=== PATIENT | female | born 1955 | race Caucasian/White ===

== ENCOUNTER 2020-07-17 11:40 | Outpatient (REF) | payer OTHER, SELFPAY | END 2020-07-17 11:41 | disposition home or self-care (01) | LOC: HO.LAB 11:40 | PROVIDERS: PCP Family Medicine; Visit Provider Internal Medicine | DX: Z20.828 Contact with and (suspected) exposure to other viral communicable diseases (principal) | CPT/HCPCS: U0003 ==

== ENCOUNTER 2021-01-08 08:08 | Outpatient (REF) | payer OTHER, SELFPAY ==
--- NOTE | 2021-01-08 08:16 | ECG_ITS ---
Test Reason : PALPITATIONS Blood Pressure : / mmHG Vent. Rate : 063 BPM Atrial Rate : 063 BPM P-R Int : 140 ms QRS Dur : 088 ms QT Int : 414 ms P-R-T Axes : 015 050 033 degrees QTc Int : 423 ms Normal sinus rhythm Low voltage QRS Borderline ECG When compared with ECG of 27-JUL-2009 11:16, No significant change was found Referred By: Candelario Schmitz Electronically Signed By:BLAKE BUTT MD
[2021-01-08 09:52] LABS: Alanine Aminotransferase 14 U/L (0-31); Anion Gap 13 (12-20); Aspartate Amino Transferase 10 U/L (5-31); Blood Urea Nitrogen 13 mg/dL (9-16); Carbon Dioxide 25 mmol/L (22-29); Chloride 109 mmol/L (96-108); Cholesterol 212 mg/dL; Estimated Glomerular Filt Rate > 60; Glucose Fasting 101 mg/dL (60-99); HDL Cholesterol 48 mg/dL; LDL Cholesterol Calculated 127 mg/dl; Potassium 4.7 mmol/L (3.3-5.1); Sodium 142 mmol/L (135-145); Triglycerides 188 mg/dL
== END 2021-01-08 08:09 | disposition home or self-care (01) ==
LOC: HO.LAB 08:08
PROVIDERS: PCP Family Medicine; Visit Provider Family Medicine
DX: I49.9 Cardiac arrhythmia, unspecified (principal); I10 Essential (primary) hypertension; E78.00 Pure hypercholesterolemia, unspecified; R73.9 Hyperglycemia, unspecified; Z79.899 Other long term (current) drug therapy
CPT/HCPCS: 36415; 80051; 80061; 82550; 82565; 82947; 84450; 84460; 84520; 93005

== ENCOUNTER → 2021-01-30 13:05 | Outpatient (REF) | payer OTHER, SELFPAY ==
--- NOTE | 2021-01-30 13:30 | ECG_ITS ---
Hook-up date: 2021-01-30 13:18:00 Duration: 43:44:00 Test Indications: PALPITATIONS Medications: 290950 QRS complexes 2503 Ventricular ectopics which represent 2 % of total QRS comp. 13 Supraventricular ectopics which represent <1 % of total QRS comp. * Paced QRS complexs which represent % of total QRS comp. VENTRICULAR ECTOPY 2395 Isolated 0 Bigeminal Cycles 54 Couplets 0 Runs 0 Beats in Runs * Beats LONGEST at * BPM at :: -- * Beats FASTEST at * BPM at :: -- SUPRAVENTRICULAR ECTOPY 13 Isolated 0 Couplets 0 Runs 0 Beats in Runs * Beats LONGEST at * BPM at :: -- * Beats FASTEST at * BPM at :: -- HEART RATES 55 MIN at 05:13:15 2021-01-31 74 AVG 104 MAX at 13:30:42 2021-01-30 LONGEST RR 1.1280 secs at 09:48:53 2021-01-31 S-T LEVELS Channel 1 - 128 mm at 13:18:00 2021-01-30 - 128 mm at 13:18:00 2021-01-30 Channel 2 - 128 mm at 13:18:00 2021-01-30 - 128 mm at 13:18:00 2021-01-30 Channel 3 - 128 mm at 03:23:71 -- - 128 mm at 03:23:71 Underlying rhythm is sinus; Average rate 74/min; Most rates between 60-100/min; Frequent Premature ventricular complexes - 2% of total beats; mostly isolated beats, some bigeminy, no runs; Patient did not report any symptoms in the diary Referred By: Candelario Schmitz Overread By: ROXANE GOMEZ
== END ==
LOC: HO.CARD 13:05
PROVIDERS: Visit Provider Family Medicine
DX: R00.2 Palpitations (principal)
CPT/HCPCS: 93225; 93226

== ENCOUNTER 2021-03-29 09:30 | Day surgery (SDC) | payer OTHER, SELFPAY ==
[2021-03-25 10:29] VITALS: BMI 29.2
--- NOTE | 2021-03-28 10:06 | HO.ANESPROP2 ---
Documented by User: Laura Malin 03/28/21 10:08 HPI - Anesthesia Eval Consult details Narrative: 66yo F for Colonoscopy PMFSH Past Medical History Medical History Cancer Elevated cholesterol History of chemotherapy History of diverticulitis HTN (hypertension) Hx of radiation therapy Surgical History Surgical History History of lumpectomy of right breast History of total right hip replacement Hx of left breast biopsy Social History Social History Patient Tobacco Use Status: Current everyday Tobacco user Tobacco use type: Cigarette Cigarette Packs Per Day: 1 Cigarettes Per Day: 20.0 Use of substances other than those prescribed or required for medical reasons: No Have you been hit, kicked, punched, or otherwise hurt by someone within the past year? If so, by whom?: No Are you DNR?: No Advance Directives: No Advance Directives Information Provided: Yes Meds Allergies Allergy/AdvReac Type Severity Reaction Status Date / Time latex [Latex] Allergy Unknown SWELLING Unverified 05/31/20 15:38 Home Medications Medication Instructions Recorded Confirmed Last Taken Type atorvastatin 1 tab PO DAILY 03/25/21 03/25/21 Unknown History diltiazem HCl [DILT-XR] 1 cap PO DAILY 03/25/21 03/25/21 Unknown History enalapril maleate 1 tab PO DAILY 03/25/21 03/25/21 Unknown History loratadine [Claritin] 10 mg PO DAILY 03/25/21 03/25/21 Unknown History Exam Exam Date and Time: March 28, 2021 1006 Height,Weight and Vital Signs: Height 5 ft 3 in Weight 74.843 kg Pertinent Lab Results Pertinent Lab Results: Laboratory Tests 09/21/19 01/08/21 12:30 08:27 WBC 10.8 Hgb 13.4 Hct 37.6 Plt Count 313 Sodium 142 Potassium 4.7 Chloride 109 H Carbon Dioxide 25 BUN 13 Creatinine 0.69 Narrative Narrative: EKG 12/2020 Vent. Rate : 063 BPM Atrial Rate : 063 BPM P-R Int : 140 ms QRS Dur : 088 ms QT Int : 414 ms P-R-T Axes : 015 050 033 degrees QTc Int : 423 ms Normal sinus rhythm Low voltage QRS Borderline ECG When compared with ECG of 27-JUL-2009 11:16, No significant change was found Holter 01/2021 Underlying rhythm is sinus; Average rate 74/min; Most rates between 60-100/min; Frequent Premature ventricular complexes - 2% of total beats; mostly isolated beats, some bigeminy, no runs; Patient did not report any symptoms in the diary Assessment and Plan Assessment Anesthesia Assessment: Chart Reviewed Documented by User: Quan Sagastume 03/29/21 09:56 PMFSH Past Medical History Medical History Cancer Elevated cholesterol History of chemotherapy History of diverticulitis HTN (hypertension) Hx of radiation therapy Surgical History Surgical History History of lumpectomy of right breast History of total right hip replacement Hx of left breast biopsy Social History Social History Patient Tobacco Use Status: Current everyday Tobacco user Tobacco use type: Cigarette Cigarette Packs Per Day: 1 Cigarettes Per Day: 20.0 Use of substances other than those prescribed or required for medical reasons: No Have you been hit, kicked, punched, or otherwise hurt by someone within the past year? If so, by whom?: No Are you DNR?: No Advance Directives: No Advance Directives Information Provided: Yes Meds Allergies Allergy/AdvReac Type Severity Reaction Status Date / Time latex [Latex] Allergy Unknown SWELLING Unverified 05/31/20 15:38 Home Medications Medication Instructions Recorded Confirmed Last Taken Type atorvastatin 1 tab PO DAILY 03/25/21 03/25/21 Unknown History diltiazem HCl [DILT-XR] 1 cap PO DAILY 03/25/21 03/25/21 Unknown History enalapril maleate 1 tab PO DAILY 03/25/21 03/25/21 Unknown History loratadine [Claritin] 10 mg PO DAILY 03/25/21 03/25/21 Unknown History Exam Airway Mallampati Class: II TM Dist: >3cm Neck ROM: Full Partial: Upper Heart: rrr+s1s2 Lungs: cta b/l Assessment and Plan Assessment Anesthesia Assessment: Anesthesia Plan Discussed, PAT Visit and Chart Reviewed Final Anesthetic Review NPO: Yes ASA Class: III Final Preanesthetic Review: No Changes in Pt Med Stat, Meds/Allgs Chart Reviewed, Consent Obtained/Reviewed and Anes Risks/Benef Reviewed Patient Risk: Intermediate Procedure Risk: Low Assessment/Block/Sedation in SS: Assess/Block/Sedation-SS Anesthetic Plan Anesthetic Plan: MAC: and Agree w/ Assess. and Plan Disposition: Standard PACU
[2021-03-29 09:43] VITALS: BP 156/70; PULSE 87; RESP 18; TEMP 36; O2SAT 96
[2021-03-29] MEDS: Sodium Phosphate,Mono-Dibasic 133 ML ENEMA PR (10:03)
[2021-03-29] MEDS: Lactated Ringers 1,000 ML 100 ML IVCONT (10:18)
[2021-03-29 11:49] VITALS: BP 131/66; PULSE 69; RESP 16; TEMP 36.2; O2SAT 96
--- NOTE | 2021-03-29 11:50 | PM.OP ---
Brief Operative Note Date of Service: 03/29/21 Pre-op diagnosis: Screening Post-op diagnosis: other (Diverticulosis) Procedure: Colonoscopy to the cecum and TI Surgeon: Román Pascual Anesthesia: MAC Was an Day Habilitation Specialist used for this Procedure?: No Estimated blood loss (mL): 0 Pathology: none sent Condition: stable Disposition: PACU
[2021-03-29 12:05] VITALS: PULSE 69; RESP 16; TEMP 36.2; O2SAT 97
--- NOTE | 2021-03-29 12:07 | OP_ITS ---
SURGEON: Román Pascual MD INDICATIONS: The patient presents for evaluation of colorectal cancer screening. Full consent has been obtained from her for this, including risks of bleeding and perforation. PREOPERATIVE DIAGNOSIS: Colorectal cancer screening. POSTOPERATIVE DIAGNOSIS: PROCEDURE PERFORMED: Colonoscopy to cecum and terminal ileum. ESTIMATED BLOOD LOSS: COMPLICATIONS: ANESTHESIA: Monitored anesthesia care. ASSISTANTS: SPECIMENS: POSTOPERATIVE DIAGNOSES: Colorectal cancer screening, sigmoid diverticulosis, and internal hemorrhoids. DESCRIPTION OF PROCEDURE: The patient was placed in the left lateral decubitus position. The digital rectal exam revealed some small external hemorrhoids. The Olympus video pediatric colonoscope was entered into the rectum and advanced easily to the cecum. Once in the cecum, I did identify normal-appearing cecal pouch with appendiceal orifice and a normal-appearing ileocecal valve. The terminal ileum was cannulated and appeared normal. The scope was withdrawn back in the colon. The entire cecum and ileocecal valve appeared normal. The scope was slowly withdrawn assessing all mucosal surfaces carefully. Preparation was excellent. I did not visualize any sign of polyps, colitis, nor angiodysplasia. There was a moderate amount of sigmoid diverticulosis. In the rectum, scope was retroflexed visualizing internal hemorrhoids, but no other pathology. The rectal mucosa appeared normal. The scope was straightened out and withdrawn from the patient. She tolerated the procedure well and was returned to the recovery area in stable condition. IMPRESSION: 1. Diverticulosis. 2. Internal hemorrhoids. PLAN: Given today's negative exam and negative family history, I would recommend a followup colonoscopy in 10 years for further screening. She will otherwise see me on a p.r.n. basis. MD TOMMY Townsend/FAISALL / [phone]
== END 2021-03-29 12:35 | disposition home or self-care (01) ==
PROVIDERS: PCP Family Medicine; Visit Provider Internal Medicine
PROC: 0DJD8ZZ Inspection of Lower Intestinal Tract, Via Natural or Artificial Opening Endoscopic (ICD-10-PCS; CPT 45378; principal; 2021-03-29 10:40)
DX: Z12.11 Encounter for screening for malignant neoplasm of colon (principal); K57.30 Diverticulosis of large intestine without perforation or abscess without bleeding; K64.8 Other hemorrhoids; I10 Essential (primary) hypertension; Z85.3 Personal history of malignant neoplasm of breast; Z92.21 Personal history of antineoplastic chemotherapy; Z92.3 Personal history of irradiation; Z79.899 Other long term (current) drug therapy; Z91.040 Latex allergy status; F17.210 Nicotine dependence, cigarettes, uncomplicated
CPT/HCPCS: 45378

== ENCOUNTER 2021-07-18 13:43 | Outpatient (REF) | payer OTHER, SELFPAY ==
--- NOTE | ~2021-07-18 | MM_ITS ---
EXAMINATION: MM SCREENING DIGITAL BREAST TOMOSYNTHESIS, BILATERAL CLINICAL INFORMATION: Screening. Asymptomatic. Status post right lumpectomy. Status post excisional biopsy left breast. COMPARISON: Mammography: June 12, 2020 and studies dating back to May 03, 2014 TECHNIQUE: Digital breast tomosynthesis is performed in both the craniocaudal and mediolateral oblique views along with computer-aided detection (CAD). Synthesized 2D images are generated from the tomosynthesis. FINDINGS: The breasts are heterogeneously dense, which may obscure small masses (ACR BI-RADS breast composition Category c). There are no new significant masses, abnormal calcifications, or other abnormalities. Postsurgical changes are seen bilaterally which are stable. MM/MM tomosynthesis screening BI IMPRESSION: There are no significant changes from prior study. ASSESSMENT: BI-RADS 2: Benign RECOMMENDATION: Routine annual mammography screening. This patient's information was entered into a reminder system with a target due date for their next mammogram.
== END 2021-07-18 13:44 | disposition home or self-care (01) ==
LOC: HO.MAMMO 13:43
PROVIDERS: PCP Family Medicine; Visit Provider Nurse Practitioner
DX: Z12.31 Encounter for screening mammogram for malignant neoplasm of breast (principal)
CPT/HCPCS: 77063; 77067

== ENCOUNTER 2022-04-03 12:05 | Outpatient (REF) | payer MEDICARE, OTHER, SELFPAY ==
[2022-04-03 13:48] LABS: Alanine Aminotransferase 13 U/L (0-31); Anion Gap 13 (12-20); Aspartate Amino Transferase 13 U/L (5-31); Blood Urea Nitrogen 12 mg/dL (9-16); Carbon Dioxide 20 mmol/L (22-29); Chloride 111 mmol/L (96-108); Estimated Glomerular Filt Rate > 60; Potassium 4.8 mmol/L (3.3-5.1); Sodium 139 mmol/L (135-145)
== END 2022-04-03 12:06 | disposition home or self-care (01) ==
LOC: HO.10HDL 12:05
PROVIDERS: Visit Provider Family Medicine
DX: I10 Essential (primary) hypertension (principal); E78.00 Pure hypercholesterolemia, unspecified; Z79.899 Other long term (current) drug therapy
CPT/HCPCS: 36415; 80051; 82550; 82565; 84450; 84460; 84520

== ENCOUNTER 2022-08-22 08:22 | Outpatient (REF) | payer MEDICARE, OTHER, SELFPAY ==
--- NOTE | ~2022-08-22 | MM_ITS ---
EXAMINATION: MM SCREENING DIGITAL BREAST TOMOSYNTHESIS, BILATERAL CLINICAL INFORMATION: Screening. Asymptomatic. Right breast cancer status post lumpectomy, 2008. Benign left excisional biopsy, 1995. COMPARISON: Mammography: 07/18/2021, 06/12/2020, 05/23/2019 TECHNIQUE: Digital breast tomosynthesis is performed in both the craniocaudal and mediolateral oblique views along with computer-aided detection (CAD). Synthesized 2D images are generated from the tomosynthesis. FINDINGS: The breasts are heterogeneously dense, which may obscure small masses (ACR BI-RADS breast composition Category c). There is fine fibronodular parenchymal pattern similar to prior studies. Breast tissue composition borders on average fibroglandular. There is no developing density or interval mass or architectural abnormality or abnormal calcifications. There are post lumpectomy changes again seen right breast with old scarring posterior upper outer quadrant along with some benign dystrophic calcification. There is a biopsy clip marker mid lower inner right breast. The axilla are unremarkable. There are no significant changes. MM/MM tomosynthesis screening BI IMPRESSION: No mammographic evidence of malignancy. ASSESSMENT: BI-RADS 2: Benign RECOMMENDATION: Routine annual mammography screening. This patient's information was entered into a reminder system with a target due date for their next mammogram.
== END 2022-08-22 08:23 | disposition home or self-care (01) ==
LOC: HO.MAMMO 08:22
PROVIDERS: Visit Provider Family Medicine
DX: Z12.31 Encounter for screening mammogram for malignant neoplasm of breast (principal)
CPT/HCPCS: 77063; 77067

== ENCOUNTER → 2022-10-22 09:03 | Outpatient (REF) | payer MEDICARE, OTHER, SELFPAY ==
--- NOTE | 2022-10-22 09:06 | CA_ITS ---
Transthoracic Echocardiogram Patient (Last, First, Middle): Mitzi Kimble M Gender: Female Date of : 1955 Age: 67 Procedure Date: 10/22/2022 Procedure Type: Transthoracic Echocardiogram Location: OP Height: 157.48 cm Weight: 72.58 kg BSA: 1.74 m2 Heart Rate: 73 bpm BP: 130 / 80 mmHg [employer] Nurse: AVEL Referring MD: Candelario Schmitz MD Dry Room Attendant: Aden Montiel MD Symptoms: R01.1 CA MURMUR RT STERNAL BORDER R/O AND TR Study Quality: Adequate ECG Rhythm: Sinus Conclusions: - 1. Normal LV systolic function with impaired relaxation filling pattern 2. Normal cardiac valvular Doppler 3. Normal RV systolic pressure 4. No gross pericardial effusion Findings Left Ventricle Normal left ventricular size, thickness, and systolic function. The visually estimated ejection fraction is between 60-65%. Spectral Doppler is indicative of an impaired relaxation filling pattern. E/E prime ratio is <8, consistent with normal filling pressures. Right Ventricle Normal right ventricular cavity size and systolic function. Atria The left atrium is likely dilated. There is no evidence of interatrial shunt. The right atrium is normal in size. Aortic Valve The aortic valve structure and function is likely normal. There is no aortic valve stenosis. There is no aortic valve regurgitation. Mitral Valve Normal mitral valve structure and function. There is trace mitral valve regurgitation. There is no mitral valve stenosis. Pulmonic Valve The pulmonic valve is likely normal. Tricuspid Valve Normal tricuspid valve structure. There is trace tricuspid valve regurgitation. The right ventricular systolic pressure is normal. The right ventricular systolic pressure is 27 mmHg. Normal right atrial pressure. There is no evidence of pulmonary hypertension. Great Vessels All visible segments of the aorta are normal in size. The pulmonary artery was not well visualized. Venous The inferior vena cava is normal in size and collapses greater than 50% with inspiration. Pericardium/Pleural There is no evidence of pericardial effusion. Prior Study Comparison No prior study available for comparison. Measurements 2D Linear Measurements IVSd: 1.06 0.6-0.9/0.6-1.0 cm LVIDd: 4.11 3.9-5.3/4.2-5.9 cm LVIDd Index: 2.36 2.4-3.2/2.2-3.1 cm/m2 LVIDs: 2.43 2.0-3.6 cm LVPWd: 0.93 0.7-1.1 cm LA Diam: 3.80 2.7-3.8/3.0-4.0 cm LAIDs Index: 2.18 1.5-2.3 cm/m2 LV Mass: 163.62 67-162/88-224 g LV Mass Index: 94.04 43-95/49-115 g/m2 LVOT Diam: 1.80 3.0+(-)1.3 cm 2D Systolic Function EF 4C: 65.10 >55% EF 2C: 62.10 >55% EF BiP: 63.10 >55% Mitral Valve MV Pk E: 0.88 MV PK A: 0.91 MV Decel Time: 224.00 E/A: 1.00 E'Lateral: 8.16 E'Medial: 8.16 E/E' Med: 10.70 E/E' Lat: 10.70 PHT: 66.00 MVA PHT: 3.33 Decel Teller: 3.91 Aortic Valve AoV Pk Ken: 1.48 AoV Mn Ken: 1.07 AoV VTI: 0.32 AoV Pk Grad: 9.00 Aov Mn Grad: 5.00 MULU Cont.VTI: 2.26 LVOT LVOT Pk Ken: 1.29 LVOT Mn Ken: 0.97 LVOT VTI: 0.29 LVOT Pk Grad: 7.00 LVOT Mn Grad: 4.00 LVOT Diam: 1.80 LVOT Area: 2.54 Diastolic Function MV Pk E: 0.88 MV Pk A: 0.91 E/A: 1.00 E'Medial: 8.16 E/E' Med: 10.70 E' Laterial: 8.16 E/E' Lat: 10.70 Right Ventricle TAPSE (mm): 22.00 TVS' Ken: 13.90 Tricuspid Valve TR Pk Ken: 2.46 TR Pk Grad: 24.00 RA Press: 3.00 RVSP: 27.00 Great Vessels Aorta Sinus of Valsalva: 3.30 2.0-3.5 cm Ao Asc: 3.30 2.1-3.4 cm Pulmonary Valve PV Pk Ken: 1.06 Peak PV Grad: 4.00 Updated in Other Vendor System with Status of Final Aden Montiel MD electronically signed on 10/23/2022 5:05:15 PM with status of Final
== END ==
LOC: HO.CARD 09:03
PROVIDERS: PCP Family Medicine; Visit Provider Family Medicine
DX: R01.1 Cardiac murmur, unspecified (principal)
CPT/HCPCS: 93306

== ENCOUNTER 2022-12-19 07:09 | Outpatient (REF) | payer MEDICARE, OTHER, SELFPAY ==
--- NOTE | ~2022-12-19 | XR_ITS ---
EXAMINATION: XR CHEST CLINICAL INFORMATION: Cough, tobacco dependence. COMPARISON: Chest radiographs 08/10/2017, 11/02/2012. TECHNIQUE: 2 views of the chest were obtained. FINDINGS: There is some borderline coarsening central bronchiolar markings. No bronchiectasis. No airspace consolidation or groundglass opacity. No effusion. Cardiopericardial silhouette within normal. The hilar and mediastinal contours are unremarkable. No acute bony abnormality. XR/XR chest 2V IMPRESSION: Mild coarsening bronchiolar markings. No bronchiectasis. No airspace consolidation or groundglass opacity.
[2022-12-19 09:32] LABS: Alanine Aminotransferase 16 U/L (0-31); Anion Gap 15 (12-20); Aspartate Amino Transferase 12 U/L (5-31); Blood Urea Nitrogen 10 mg/dL (9-16); Carbon Dioxide 23 mmol/L (22-29); Chloride 105 mmol/L (96-108); Estimated Glomerular Filt Rate > 60; Potassium 4.9 mmol/L (3.3-5.1); Sodium 138 mmol/L (135-145)
[2022-12-19 09:52] LABS: Thyroid Stimulating Hormone 0.89 uIU/mL (0.32-4.0)
== END 2022-12-19 07:10 | disposition home or self-care (01) ==
LOC: HO.LAB 07:09
PROVIDERS: PCP Family Medicine; Visit Provider Family Medicine
DX: I10 Essential (primary) hypertension (principal); E78.00 Pure hypercholesterolemia, unspecified; F17.200 Nicotine dependence, unspecified, uncomplicated; R05.9 Cough, unspecified; Z79.899 Other long term (current) drug therapy
CPT/HCPCS: 36415; 71046; 80051; 82550; 82565; 84443; 84450; 84460; 84520

== ENCOUNTER 2024-05-17 07:31 | Outpatient (REF) | payer MEDICARE, OTHER, SELFPAY ==
[2024-05-17 08:23] LABS: Estimated Average Glucose 123 mg/dL; Hemoglobin A1c % 5.9 % (<6.0)
[2024-05-17 09:04] LABS: Alanine Aminotransferase 16 U/L (0-31); Anion Gap 11 (12-20); Aspartate Amino Transferase 14 U/L (5-31); Blood Urea Nitrogen 10 mg/dL (9-16); Carbon Dioxide 23 mmol/L (22-29); Chloride 109 mmol/L (96-108); Cholesterol 222 mg/dL (<200); Estimated Glomerular Filt Rate > 60; Glucose Fasting 97 mg/dL (60-99); HDL Cholesterol 39 mg/dL (>40); LDL Cholesterol Calculated 128 mg/dL (<100); Potassium 4.3 mmol/L (3.3-5.1); Sodium 139 mmol/L (135-145); Triglycerides 277 mg/dL (<150)
== END 2024-05-17 07:32 | disposition home or self-care (01) ==
LOC: HO.LAB 07:31
PROVIDERS: PCP Family Medicine; Visit Provider Family Medicine
DX: I10 Essential (primary) hypertension (principal); E78.00 Pure hypercholesterolemia, unspecified; Z79.899 Other long term (current) drug therapy; R73.9 Hyperglycemia, unspecified
CPT/HCPCS: 36415; 80051; 80061; 82550; 82565; 82947; 83036; 84450; 84460; 84520

== ENCOUNTER 2024-09-09 10:19 | Outpatient (REF) | payer MEDICARE, OTHER, SELFPAY ==
--- OUTSIDE RECORDS SUMMARY | 2024-09-09 10:21 | XMS_ITS | Patient Health Record ---
Author Organization [facility] Address [address] [place] [address] Care Team Providers Care Sizer Machine Name Role Phone Nadir SORIANO, Candelario Primary Care Provider Unavailab Román Leblanc Unavailable [phone] REASON FOR REFERRAL No Information MEDICATIONS Medication SIG (Take, Route, Frequency, Duration) Notes Start Date End Date Status Atorvastatin Calcium 40 MG TAKE 1 TABLET BY MOUTH EVERY NIGHT AT BEDTIME DIRECTED Oral for 30 Active Claritin 10 MG 1 tablet Orally Once a day for 30 day(s) Active Dilt-XR 120 MG TAKE ONE CAPSULE BY MOUTH DAILY Oral for 30 Active Enalapril Maleate 20 MG TAKE 1 TABLET BY MOUTH EVERY DAY Oral for 30 Active IMMUNIZATIONS Vaccine Route Administration Date Status Comme nts Influenza Unknown 02/19/2021 Refused SOCIAL HISTORY Tobacco Use: Social History Observation Description Date Details (start date - stop date) Current Smoker NA - NA Sex Assigned At : Social History Observation Description Sex Assigned At Unknown Tobacco Use/Smoking Question Answer Notes Patient is a current smoker How often do you smoke cigarettes? every day How many cigarettes a day do you smoke? 11-20 Alcohol Screen Question Answer Notes Did you have a drink contain ing alcohol in the past year? Yes How often did you have a dri nk containing alcohol in the past year? 2 to 4 times a month (2 points) How many drinks did you have on a typical day when you were drinking in the past year? 3 or 4 drinks (1 point) Points 3 Interpretation Positive PROBLEMS Problem Type ICD Code Onset Dates Problem Status W/U Status Risk SNOMED Code Notes Problem Encounter for screening for malignant neoplasm of colon (Z12.11) Active confirmed 294485715 Problem Preprocedural examination (Z01.818) Active confirmed [id number] Problem Diverticular disease of colon (K57.30) Active confirmed Diverticular disease of colon (392337738) PLAN OF TREATMENT Future Test Test Name Order Date COLONOSCOPY 02/19/2021 Insurance Providers Payer Name Payer Address Payer Phone Subscriber Number Group Number Insured Name Patient Relationship to Insured Coverage Start Date Coverage End Date [facility] [address] [place] [address] [id number] BRIELLE POWELL Self - patient is the insured MEDICAL (GENERAL) HISTORY Medical History History ICD Code Hypertension Right breast cancer-2008--surgery as bel ow, chemo, and XRT Denies [place],DM,CVA,Lung disease,renal dise ase Seasonal allergies Left-sided diverticulitis in 04/2019 and 09/2019 Hyperlipidemia Surgical History Surgery Date(Month/Year) Lumpectomy as above 07/2009 Right hip replacement 03/2014 Benign left breast biopsy
[2024-09-09 10:57] LABS: MANUAL DIFF FLAG NO
[2024-09-09 11:02] LABS: Basophils Absolute Auto 0.1 X10*3/uL (0.0-0.2); Eosinophils Absolute Auto 0.1 X10*3/uL (0.0-0.4); Eosinophils Percent Auto 1.6 % (0-4); Hematocrit 36.2 % (37.0-47.0); Hemoglobin 12.2 g/dl (12.0-16.0); Imm Gran Abs Auto 0.01 X10*3/uL (0.00-0.03); Imm Gran Pct Auto 0.1 % (0.0-0.4); Lymphocytes Absolute Auto 3.1 X10*3/uL (1.2-4.9); Lymphocytes Percent Auto 44.1 % (20-40); Mean Corpuscular HGB Conc 33.7 g/dl (31.0-35.0); Mean Corpuscular Hemoglobin 33.1 pg (27.0-33.0); Mean Corpuscular Volume 98.1 fL (80.0-98.0); Mean Platelet Volume 9.8 fL (9.4-12.3); Monocytes Absolute Auto 0.6 X10*3/uL (0.1-1.2); Monocytes Percent Auto 8.2 % (2-11); Neutrophils Absolute Auto 3.1 x10*3/uL (2.0-8.3); Platelet Count 385 X10*3/uL (160-400); Red Blood Count 3.69 X10*6/uL (4.20-5.50); Red Cell Distribution Width 14.1 % (11.0-16.0); White Blood Count 6.9 X10*3/uL (4.8-10.8)
[2024-09-09 11:14] LABS: C Reactive Protein 0.44 mg/dL (< or = 0.50)
[2024-09-09 11:52] LABS: Erythrocyte Sedimentation Rate 59 MM/HR (0-20)
== END 2024-09-09 10:20 | disposition home or self-care (01) ==
LOC: HO.10HDL 10:19
PROVIDERS: Visit Provider Family Medicine
DX: K57.92 Diverticulitis of intestine, part unspecified, without perforation or abscess without bleeding (principal)
CPT/HCPCS: 36415; 85025; 85652; 86140

== ENCOUNTER 2025-05-24 09:51 | Outpatient (AMB) | payer MEDICARE, OTHER, SELFPAY ==
--- NOTE | 2025-05-24 09:50 | A.OFFPC_ITS ---
Vital Signs 05/24/25 09:55 Height 5 ft 1 in Weight 162 lb BMI 30.6 BP 130/64 Blood Pressure Location Lt brachial Position Sitting Respiration 18 Pulse 82 Pulse Source Pulse Oximeter Temp 98.2 F Temp Source Temporal Artery Scan Pulse Oximetry (%) 95 Intake Visit Reasons: 3 MO F/UP - [facility] - WILL WANT DR. NELSON Woodworking Machine Feeder Required: No Accompanied by: Self / Same As Patient Allergies latex (Latex) Allergy (Unknown, Verified 05/24/25 09:51) SWELLING Medication List - Last Reconciled 05/24/25 by Thomas Nelson MD atorvastatin 1 tab PO DAILY ciprofloxacin HCl 250 mg PO BID 7 days diltiazem HCl ER (DILT-XR) 1 cap PO DAILY enalapril maleate 1 tab PO DAILY loratadine (Claritin) 10 mg PO DAILY multivitamin 1 tab PO DAILY Tobacco use date assessed: 05/24/25 Fall risk assessment: No Falls in past year Last assessed Fall Risk: 05/24/25 Dental Screening Did you have a dental visit in the last 12 months?: Yes HPI HPI Comments History of Present Illness Details The patient is a 70-year-old female presenting with episodes of diverticulitis occurring two to three times annually. Last week, she experienced a severe flare-up characterized by abdominal pain primarily localized to the lower left quadrant, which later extended across the entire lower abdomen. The pain intensity was rated as 10/10. The episode began on a Thursday, and antibiotics (Ciprofloxacin) were initiated on ; however, she reports that this medication was ineffective compared to her usual antibiotic, Amoxicillin. Her symptoms were somewhat relieved by ceasing food intake and consuming only liquids. Despite this, she did not experience diarrhea or richard tochezia; instead, she reports constipation despite typically having regular bowel movements a couple of times daily. Past imaging, including ultrasonography and CT scans, have shown normal results, according to the patient. Despite having a family history of diverticulosis, there is no current imaging evidence of an active diverticulitis episode within this visit. Medical History: - Hypertension, managed with lisinopril and diltiazem - Hyperlipidemia, managed with atorvasta tin - History of cold sores, treated with [facility] lacyclovir - History of Breast Cancer, diagnosed in [id number] Surgical History: - Two total hip replacements - Breast cancer surgery Medications: - Lisinopril for hypertension - Diltiazem for hypertension - Atorvastatin for hyperlipidemia Family History: - Coronary artery disease in both parent s, both had bypass surgeries - Diabetes present on both paternal and maternal sides - Breast cancer in family history - Sinus cancer in maternal lineage Diagnostic Results: - High triglyceride and cholesterol cucae ls from last year's blood work - Previous normal colonoscopy and imagin g studies showing diverticulosis but no diverticulitis Social History: - Smokes about 10-12 cigarettes per day for the past 40 years - Consumes 1-2 alcoholic drinks per week - Lives with a boyfriend in a safe and s table environment - Reports safe living conditions [facility] Medical History (Updated 05/24/25 @ 10:23 by Thomas Nelson MD) Diverticulitis Tobacco use disorder History of diverticulitis Elevated cholesterol Hx of radiation therapy History of chemotherapy Cancer HTN (hypertension) Surgical History Hx of left breast biopsy History of total right hip replacement History of lumpectomy of right breast Social History [facility] Patient Tobacco Use Status: Current everyday Tobacco user Tobacco use type: Cigarette Cigarette Packs Per Day: 1 Cigarettes Per Day: 20.0 e-Cigarette/Vaping Use: Never Used service: No Current occupational status: retired Questionnaire PHQ-9 Over the last 2 weeks, how often have you been bothered by any of the following problems? 1. Little interest or pleasure in doing things: not at all 2. Feeling down, depressed, or hopeless: not at all 3. Trouble falling or staying asleep, or sleeping too much: not at all 4. Feeling tired or having little energy: not at all 5. Poor appetite or overeating: not at all 6. Feeling bad about yourself - or that you are a failure or have let yourself or your family down: not at all 7. Trouble concentrating on things, such as reading the newspaper or watching television: not at all 8. Moving or speaking so slowly that other people could have noticed. Or the opposite - being so fidgety or restless that you have been moving around a lot more than usual: not at all 9. Thoughts that you would be better off or of hurting yourself in some way: not at all Total score: 0 Depression Screening Interpretation: Negative Depression Screening Done: Yes 32707 - PHQ-9 Billing: Yes Source: Developed by Drs. Román Galvan, Alisha Fernández, Rhys Lozoya and colleagues, with an educational maryjane from [employer]. Thrive Questionnaire Date Thrive assessed: 05/24/25 I am a: Patient What is your living situation today?: I have a steady place to live Within the past 12 months, did the food you bought not last and you didn't have the money to get more?: Never true Within the past 12 months, did you worry whether your food would run out before you got money to buy more?: Never true Do you have trouble paying for medicines?: No Do you have trouble getting transportation to medical appointments?: No Do you have trouble paying your heating and electricity bill?: No Do you have trouble taking care of your child, family member or friend?: No Do you have trouble with day-to-day activities such as bathing, preparing meals, shopping, managing finances, etc.?: No Are you currently unemployed and looking for a job?: No Are you interested in more education?: No THRIVE Score: 0 AUDIT C Alcohol Use Questionnaire (AUDIT-C) 1. How often do you have a drink containing alcohol?: 2-4 times a month 2. How many drinks containing alcohol do you have on a typical day when you are drinking?: 1 or 2 3. How often do you have six or more drinks on one occasion?: Never Total Score: 2 Score Reviewed/Action Taken: Yes BRYAN-7 AMB Questionnaire BRYAN-7 Date BRYAN - 7 assessed: 05/24/25 Feeling nervous, anxious, or on edge: 0 = Not at all Not being able to stop or control worryin = Not at all Worrying too much about different things: 0 = Not at all Trouble relaxin = Not at all Being so restless that it is hard to sit still: 0 = Not at all Becoming easily annoyed or irritable: 0 = Not at all Feeling afraid as if something awful might happen: 0 = Not at all Total BRYAN-7 score (0-4 normal; 5-9 mild; 10-14 moderate; 15-21 severe): 0 Source: Developed by Drs. Román Galvan, Alisha Fernández, Rhys Lozoya and colleagues, with an educational maryjane from [employer]. BRYAN-7 Assessment Billing BRYAN-7 Assessment Tool: BRYAN-7 Assessment 32586 Review of Systems Const Details: - Gastrointestinal: Reports severe abdominal pain during flare-ups; Denies diarrhea and blood in stools - Genitourinary: Denies dysuria or incontinence - Neurological: Reports occasional headaches in the eyes - Psychiatric: Denies depression, anxiety, or self-harming thoughts All systems reviewed & are unremarkable as reviewed in HPI and except as above Physical exam (Primary Care) Vital Signs: Last Vital Signs Temp 98.2 F 05/24/25 09:55 Pulse 82 05/24/25 09:55 Resp 18 05/24/25 09:55 BP 130/64 05/24/25 09:55 Pulse Ox 95 05/24/25 09:55 BMI result Body Mass Index 30.6 Tobacco/Smoking Status: Tobacco use Status Tobacco use date assessed 05/24/25 05/24/25 09:58 Patient Tobacco Use Status Current everyday Tobacco 05/24/25 09:58 Tobacco use type Cigarette 05/24/25 09:58 e-Cigarette/Vaping Use Never Used 05/24/25 09:58 Discussed the ill effects of tobacco use in the setting of malignancies, high blood pressure and in combination with her hypercholesterolemia can worsen her underlying medical conditions. Are you ready to quit: No Tobacco cessation counseling provided: Yes Relapse Prevention: discussed the importance of a supportive environment Number of minutes spent counselin CPT code: 89305 - 4-10 Minutes Depression Screening Interpretation: Negative Const Other: General: Alert and oriented, Well nourished, No acute distress. Eye: Pupils are equal, round and reactive to light, Intact accommodation, Extraocular movements are intact, Normal conjunctiva, Vision unchanged. HENT: Normocephalic, Atraumatic, Tympanic membranes are clear, Normal hearing, Oral mucosa is moist, No pharyngeal erythema, Ear canals patent. Respiratory: Lungs CTA bilaterally, No wheeze, Respirations are non-labored. Cardiovascular: Regular rate, Regular rhythm, S1 auscultated, S2 auscultated, No murmur, Good pulses equal in all extremities, Normal peripheral perfusion, No edema. Gastrointestinal: Soft, Tender in the lower abdomen, Non-distended, Normal bowel sounds, No organomegaly. Musculoskeletal: Normal range of motion, Normal strength, No tenderness, No swelling, No deformity, Normal gait. Integumentary: Warm, Dry, Leyner, Intact, Presence of varicose veins. Neurologic: Alert, Oriented, Normal sensory, Normal motor function, No focal defects, Cranial Nerves II-XII are grossly intact, Normal deep tendon reflexes. Psychiatric: Cooperative, Appropriate mood & affect, Normal judgment. Coding Level of Care Code New Pt Level 4 (77086) New Pt Prev Care >65yr (54691) Diagnoses Hypertension, unspecified type I10 Hypertension type: unspecified Elevated cholesterol E78.00 Tobacco use disorder F17.200 Diverticulitis K57.92 Additional Codes PHQ-9 - 15699 - PHQ-9 Billing: Yes ([id number]) BRYAN-7 Assessment Billing - BRYAN-7 Assessment Tool: BRYAN-7 Assessment 12542 ([id number]) Vital Signs *Quality* - CPT code: 99937 - 4-10 Minutes ([id number]) Assessment & Plan Assessment & Plan (1) HTN (hypertension): Comment: - Continue with current antihypertensive medications: lisinopril and diltiazem. - Blood pressure was well-controlled during this visit. Code(s): I10 - Essential (primary) hypertension Category: Medical Qualifiers: Hypertension type: unspecified Qualified Code(s): I10 - Essential (primary) hypertension (2) Elevated cholesterol: Comment: - Continue atorvastatin and discuss lifestyle modifications for cholesterol control. - Will repeat panel and change medications based on results Code(s): E78.00 - Pure hypercholesterolemia, unspecified Category: Medical (3) Tobacco use disorder: Comment: - Strongly advised to reduce smoking due to associated health risks. - Lung cancer screening has been ordered due to smoking history. Code(s): F17.200 - Nicotine dependence, unspecified, uncomplicated Category: Medical (4) Diverticulitis: Comment: - Recommend evaluation by a general surgeon due to recurrent episodes more than twice a year. - Advised to seek immediate medical attention during future acute episodes to obtain essential imaging given she has received multiple courses of antibiotics without any imaging or findings of infections. Code(s): K57.92 - Diverticulitis of intestine, part unspecified, without perforation or abscess without bleeding Category: Medical Plan: Health Maintenance - Lung cancer screening via low-dose CT due to a long smoking history - Routine mammogram conducted this year - Blood work to assess sugar levels, thyroid function, and cholesterol is planned Plan I discussed with the patient the necessity of confirming a diagnosis of diverticulitis with imaging during an acute episode to appropriately guide treatment. It was explained that recurrent diverticulitis should be evaluated by a general surgeon, especially considering the frequency of occurrences. I emphasized that without suitable imaging or documentation, we could not establish a confirmed diagnosis of diverticulitis to justify the recurring antibiotic treatments. In terms of health maintenance, I have ordered a lung cancer screening and will continue managing hypertension and hyperlipidemia with her current medications, while encouraging lifestyle modifications to improve her overall prognosis. She is advised to reduce smoking due to its considerable impact on cardiovascular health and cancer risk. I confirmed that her blood pressure readings are stable, and the strategies for her lipid management remain effective. Orders: Orders Comprehensive Met. Panel Today E78.00 - Pure hypercholesterolemia, unspecified, I10 - Essential (primary) hypertension Complete Blood Count Auto Diff Today E78.00 - Pure hypercholesterolemia, unspecified, I10 - Essential (primary) hypertension Hemoglobin A1c Today E78.00 - Pure hypercholesterolemia, unspecified, I10 - Essential (primary) hypertension Lipid Panel Today E78.00 - Pure hypercholesterolemia, unspecified, I10 - Essential (primary) hypertension TSH reflex Free T4 Today E78.00 - Pure hypercholesterolemia, unspecified, I10 - Essential (primary) hypertension Vitamin D 25-OH Total Today E78.00 - Pure hypercholesterolemia, unspecified, I10 - Essential (primary) hypertension Referrals Lung Cancer Screening Referral F17.200 - Nicotine dependence, unspecified, uncomplicated Patient Instructions: - Seek immediate medical help during any future severe abdominal pain episodes to obtain necessary imaging. - Continue taking hypertension and lipid-lowering medications as prescribed. - Reduce cigarette smoking to lower the risk of heart disease and cancer. - Attend the scheduled lung cancer screening and follow up for results. - Maintain regular mammogram screenings and health check-ups. - Perform routine blood work as planned for monitoring cholesterol and thyroid function.
[2025-05-24 09:55] VITALS: BP 130/64; PULSE 82; RESP 18; TEMP 36.8; O2SAT 95; BMI 30.6
--- OUTSIDE RECORDS SUMMARY | 2025-05-24 11:52 | XMS_ITS | Patient Health Record ---
[facility] Address [address] [place] [address] Care Team Providers Care Automobile Tester Name Role Phone Nadir (RETIRED) Candelario SORIANO Primary Care Provider Unavailable Román Pascual Unavailable [phone] Allergies No Known Allergies Reason For Referral No Information Medications Medication SIG (Take, Route, Frequency, Duration) Notes Start Date End Date Status Dilt-XR 120 MG TAKE ONE CAPSULE BY MOUTH DAILY Oral for 30 Active Enalapril Maleate 20 MG TAKE 1 TABLET BY MOUTH EVERY DAY Oral for 30 Active Magnesium Active Atorvastatin Calcium 40 MG TAKE 1 TABLET BY MOUTH EVERY NIGHT AT BEDTIME DIRECTED Oral for 30 Active Allergy Relief Activ e Immunizations Vaccine Route Administration Date Status Comme nts Influenza Unknown 02/19/2021 Refused Social History Tobacco Use: Social History Observation Description Date Details (start date - stop date) Current Smoker NA - NA Tobacco Use/Smoking Question Answer Notes Patient is [...] drinks (1 point) Points 3 Interpretation Positive Section Notes: Smokes 12 cigs QD, occ. alco hol Smokes 12 cigs QD, occ. alco hol Problems Problem Type SNOMED Code ICD Code Onset Dates Problem Status W/U Status Risk Notes Problem [id number] Encounter for screening for malignant neoplasm of colon (Z12.11) Active confirmed Problem [id number] Preprocedural examination (Z01.818) Active confirmed Problem Diverticular disease of colon (917874147) Diverticular disease of colon (K57.30) Active confirmed Vital Signs Blood pressure diastolic 77 mm Hg 01/24/2025 Height 63 in 01/24/2025 Blood pressure systolic 111 mm Hg 01/24/2025 Weight 168 lbs 01/24/2025 BMI 29.76 kg/m2 01/24/2025 Encounters Encounter Location Date Provider Diagnosis [facility] [address] [place] [address] 01/24/2025 Román Pascual Diverticular disease of colon K57.30 ; Colon cancer screening Z12.11 and Encounter for screening for malignant neoplasm of colon Z12.11 [facility] [address] [place] [address] 09/15/2024 Román Pascual Assessments Encounter Date Diagnosis (ICD Code) Assessment Notes Treatment Notes Treatment Clinical Notes Section Notes 01/24/2025 Colon cancer screening (ICD-10 - Z12.11) Overall, Mitzi appears well. She does not appear to be having any new or worrisome GI complaints at the present time. We did review her most recent colonoscopy showing the diverticulosis. I advised her of the need for a follow-up colonoscopy in 2030 for further screening purposes. We did review the history of diverticulosis as well as her diverticulitis. I advised her of the importance of staying on a healthy and high-fiber diet with plenty of water so as to avoid constipation and straining. I did recommend a trial of some Metamucil daily to see if that can help facilitate more complete bowel movements, cut down her sense of incomplete evacuation, and perhaps decrease her postprandial lower abdominal cramping. We did review the symptoms may also suggest some underlying mild irritable bowel syndrome but at this point I do not think that needs to be treated with any antispasmodics. Hopefully just keeping the bowel movements regular and more complete will help decrease those symptoms. At this point, if things remain stable she will see me in the interim on a prn basis. Mitzi was comfortable with this plan. Thank you again for allowing me to participate in Mitzi's care. I shall continue to keep you advised of her progress as needed. 01/24/2025 Diverticular disease of colon (ICD-10 - K57.30) Use 1 or 2 Metamucil fiber pills with a lot of water daily to help with the BM's and avoid constipation Overall, Mitzi appears well. She does not appear to be having any new or worrisome GI complaints at the present time. We did review her most recent colonoscopy showing the diverticulosis. I advised her of the need for a follow-up colonoscopy in 2030 for further screening purposes. We did review the history of diverticulosis as well as her diverticulitis. I advised her of the importance of staying on a healthy and high-fiber diet with plenty of water so as to avoid constipation and straining. I did recommend a trial of some Metamucil daily to see if that can help facilitate more complete bowel movements, cut down her sense of incomplete evacuation, and perhaps decrease her postprandial lower abdominal cramping. We did review the symptoms may also suggest some underlying mild irritable bowel syndrome but at this point I do not think that needs to be treated with any antispasmodics. Hopefully just keeping the bowel movements regular and more complete will help decrease those symptoms. At this point, if things remain stable she will see me in the interim on a prn basis. Mitzi was comfortable with this plan. Thank you again for allowing me to participate in Mitzi's care. I shall continue to keep you advised of her progress as needed. 01/24/2025 Encounter for screening for malignant neoplasm of colon (ICD-10 - Z12.11) Overall, Mitzi appears well. She does not appear to be having any new or worrisome GI complaints at the present time. We did review her most recent colonoscopy showing the diverticulosis. I advised her of the need for a follow-up colonoscopy in 2030 for further screening purposes. We did review the history of diverticulosis as well as her diverticulitis. I advised her of the importance of staying on a healthy and high-fiber diet with plenty of water so as to avoid constipation and straining. I did recommend a trial of some Metamucil daily to see if that can help facilitate more complete bowel movements, cut down her sense of incomplete evacuation, and perhaps decrease her postprandial lower abdominal cramping. We did review the symptoms may also suggest some underlying mild irritable bowel syndrome but at this point I do not think that needs to be treated with any antispasmodics. Hopefully just keeping the bowel movements regular and more complete will help decrease those symptoms. At this point, if things remain stable she will see me in the interim on a prn basis. Mitzi was comfortable with this plan. Thank you again for allowing me to participate in Mitzi's care. I shall continue to keep you advised of her progress as needed. Plan Of Treatment Future Test Test Name Order Date COLONOSCOPY 02/19/2021 Insurance Providers Payer Name Payer Address Payer Phone Subscriber Number Group Number Insured Name Patient Relationship to Insured Coverage Start Date Coverage End Date MEDICARE OF [place] [address] [facility] [place] [address] [id number] MITZI POWELL Self - patient is the insured [employer] ([employer] [address] [place] [address] [id number] MITZI POWELL Self - patient is the insured Medical (General) History Medical History History ICD Code Hypertension Right breast cancer-2008--surgery as bel ow, chemo, and XRT Denies VT,DM,CVA,Lung disease,renal dise ase Seasonal allergies Left-sided diverticulitis in 04/2019 and 09/2019 Hyperlipidemia Negative colonoscopy in 2020 Surgical History Surgery Date(Month/Year) Left hip replacement 2021 Benign left breast biopsy Right hip replacement 03/2014 Lumpectomy as above 07/2009
--- OUTSIDE RECORDS SUMMARY | 2025-05-24 11:52 | XMS_ITS | Clinical Summary ---
Author Organization [facility] Address [address] [facility] [address] [place] [address] Phone Care Team Providers Care Product Development Manager Name Role Phone Candelario Schmitz MD Primary Care Provider Allergies No known active allergies Medications No known medications Active Problems Problem Noted Date Diagnosed Date Hip pain 12/13/2013 Overview (11/03/2014): Hip pain Immunizations Immunization Administration Dates Next Due Pneumococcal polysaccharide PPSV23 03/21/2014 Social History Tobacco Use Types Packs/Day Years Used Date Smoking Tobacco: Every Day Education Answer Date Recorded Are you interested in more education? Not on shelton e 01/09/2023 Are you concerned about learning? Not on file 01/09/2023 No 01/09/2023 No 01/09/2023 Digital Access Answer Date Recorded No 02/09/2023 No 02/09/2023 No 02/09/2023 Reliable internet access at home? Not on file 02/09/2023 Device with a working camera? Not on file Comments Unknown Sex and Gender Information Value Date Recorded Sex Assigned at Not on file Legal Sex Female 11:36 AM EDT Gender Identity Not on file Sexual Orientation Not on file Last Filed Vital Signs Vital Sign Reading Time Taken Comments Blood Pressure - - Pulse - - Temperature - - Respiratory Rate - - Oxygen Saturation - - Inhaled Oxygen Concentration - - Weight 68 kg (150 lb) 02/03/2020 11:32 AM EDT Height 160 cm (5' 3 ) 02/03/2020 11:32 AM EDT Body Mass Index 26.57 02/03/2020 11:32 AM EDT Plan of Treatment Health Maintenance Due Date Last Done Comments Adult Td,Tdap Booster 1957 LIPID PANEL 1957 DEPRESSION SCREENING 1969 SMOKING Hx and SMOKELESS TOB ACCO SCREENING 1970 HEPATITIS C SCREENING 1975 MAMMOGRAM 1997 COLOGUARD 2002 COLONOSCOPY 2002 COLORECTAL CANCER SCREENING 2002 FIT TEST 2002 FOBT 2002 SIGMOIDOSCOPY 2002 VIRTUAL COLONOSCOPY 2002 ZOSTER VACCINES (1 of 2) 2007 PNEUMOCOCCAL VACCINES (50+ y ears) (2 of 2 - PCV) 03/21/2015 03/21/2014 OSTEOPOROSIS SCREENING INITI AL (ONE-TIME) 2022 COVID-19 VACCINE (2 - 2023-2 5 season) 2024 11/27/2020 INFLUENZA VACCINE (#1) 2025 RSV VACCINE (1 - 1-dose 75+ series) 01/23/2032 HEPATITIS A VACCINES Aged Out No long er eligible based on patient's age to complete this topic HIB VACCINES Aged Out No longer eligi ble based on patient's age to complete this topic MENINGOCOCCAL VACCINES (ACWY) Aged Out No longer eligible based on patient's age to complete this topic MENINGOCOCCAL VACCINES (B) Aged Out N o longer eligible based on patient's age to complete this topic Medical Devices Not on file Insurance [facility] TOTAL CHOICE INDEMNITY [address] [place], [place] [address] [facility] TOTAL CHOICE INDEMNITY [address] [place] [address] [facility] TOTAL CHOICE [address]DE[address] [place] [address] [facility] TOTAL CHOICE [address] [place] [address] [facility] TOTAL CHOICE INDEMNITY [employer] [facility] TOTAL CHOICE INDEMNITY [employer] [facility] TOTAL CHOICE INDEMNITY [employer] TOTAL CHOICE INDEMNITY [employer] TOTAL CHOICE INDEMNITY [employer] TOTAL CHOICE INDEMNITY Care Teams Product Development Manager Relationship Specialty Start Date End Date Candelario Schmitz MD [address] [place] [address] [place] [address] PCP - General Emergency Medicine 02/20/14 Additional Source Comments The information contained in this document represents components of the legal health record. It is not the complete legal health record.[facility]
== END 2025-05-24 10:22 | disposition home or self-care (01) ==
LOC: HO.HMCHD 09:52
PROVIDERS: PCP Student in an Organized Health Care Education/Training Program; Visit Provider Student in an Organized Health Care Education/Training Program
DX: I10 Essential (primary) hypertension (principal); E78.00 Pure hypercholesterolemia, unspecified; F17.200 Nicotine dependence, unspecified, uncomplicated; K57.92 Diverticulitis of intestine, part unspecified, without perforation or abscess without bleeding; Z00.00 Encounter for general adult medical examination without abnormal findings

== ENCOUNTER → 2025-05-24 09:51 | Outpatient (BNVA) | payer MEDICARE, OTHER, SELFPAY | PROVIDERS: PCP Family Medicine; Visit Provider Student in an Organized Health Care Education/Training Program | DX: I10 Essential (primary) hypertension (principal); E78.00 Pure hypercholesterolemia, unspecified; K57.92 Diverticulitis of intestine, part unspecified, without perforation or abscess without bleeding; F17.210 Nicotine dependence, cigarettes, uncomplicated; Z79.899 Other long term (current) drug therapy; Z13.31 Encounter for screening for depression; Z13.39 Encounter for screening examination for other mental health and behavioral disorders | CPT/HCPCS: 96127; 99202 ==

== ENCOUNTER 2025-08-18 10:56 | Outpatient (AMB) | payer MEDICARE, OTHER, SELFPAY ==
--- NOTE | 2025-08-18 08:42 | A.OFFVIS_ITS ---
Intake Visit Reasons: Current Smoker Allergies latex (Latex) Allergy (Unknown, Verified 05/24/25 09:51) SWELLING HPI HPI Current Smoker: Details: Initial visit for this 70yo smoker with a 25PYH. Patient started smoking at age 20 for 50 years at 1/2ppd. . Denies marijuana use. Denies second hand smoke exposure. Denies exposure to chemicals or substances like asbestos. . Family history of lung cancer. Maternal Aunt in 70s. Reports personal history of Breast cancer. Rt Breast Cancer -Dx [id number] - s/p lumpectomy + Chemo + Radiation. Denies chest CT in last year. . Denies recent travel outside the [place]. Denies recent respiratory illness or recent hospitalization for respiratory issues. History. testing positive for COVID. Admits receiving COVID Vaccine. . Denies fever, chills, new/worsening cough, hemoptysis, hoarseness or dysphagia. Denies significant chest pain, significant dyspnea or unintentional weight loss. Patient Lung Cancer Screening Questionnaire reviewed with patient by provider. . Shared Decision Making Completed. Patient meets criteria. Discussed in detail with patient, the risk vs benefit of LDCT screening. Patient consents to proceed with scan. Discussed smoking cessation. [facility] Medical History (Updated 08/18/25 @ 10:54 by Olivia Hernandez PA-C) History of cancer of right breast Nicotine dependence, cigarettes, uncomplicated Diverticulitis History of diverticulitis Elevated cholesterol Hx of radiation therapy History of chemotherapy HTN (hypertension) Surgical History (Updated 08/18/25 @ 10:59 by Olivia Hernandez PA-C) History of total left hip replacement History of colonoscopy Hx of left breast biopsy History of total right hip replacement History of lumpectomy of right breast Family History (Updated 08/18/25 @ 11:02 by Olivia Hernandez PA-C) Mother Coronary atherosclerosis of bypass graft Father Coronary atherosclerosis of bypass graft Maternal Aunt Lung cancer Social History (Updated 08/18/25 @ 10:54 by Olivia Hernandez PA-C) Housing: Condominium Patient Tobacco Use Status: Current everyday Tobacco user Tobacco use type: Cigarette Cigarettes Per Day: 10 Years Smoked: (onset 20yo, 1/2ppd x 50yrs, 25pyh) e-Cigarette/Vaping Use: Never Used service: No Current occupational status: retired Assessment & Plan Assessment & Plan (1) Nicotine dependence, cigarettes, uncomplicated: Comment: (onset 20yo, 1/2ppd x 50yrs, 25pyh) Code(s): F17.210 - Nicotine dependence, cigarettes, uncomplicated Category: Medical Plan: - SDM visit completed today in office. - Patient meets criteria for LDCT for lung cancer screening purposes and is asymptomatic. - Smoking cessation counseling offered. Patients can always call [phone]. - Will arrange for a LDCT scan of the chest for screening purposes at [facility]. - Risks, benefits, and alternatives were discussed in detail and the patient agrees to proceed. - Risks discussed include but are not limited to: radiation exposure, anxiety during testing and while awaiting results, false negatives, false positives and possibility of additional intervention such as further imaging or surgical procedures for benign disease. - Benefits are obviously detection of lung cancer at an early stage which can lead to improved outcomes. - Discussed the importance of screening program compliance with adherence to yearly LDCT scan as scheduled - or sooner interval scans for personalized screening regimen. - Discussed follow up plan. Our office will send a letter discussing results and if needed set up phone call and office visit based on CT findings. - Patient educated on results categorization and the management decisions for suspicious findings potentially found on the screening LDCT scan. Any patient with a Lung RADS score of 3 or 4 will be reviewed by a multidisciplinary team at [facility] to form a plan of action in regards to scan findings. - If further work up is warranted for a suspicious lung finding this will be followed by the Lung Cancer Screening program in conjunction with the Thoracic Surgery Department at [facility]. - A copy of the office note and LDCT will be sent to the patient's PCP - as well as documentation on any associated further plans of care. - Incidental findings on LDCT are the PCP's responsibility. These findings are indicated with an S finding on the LDCT Assessment. A note discussing the findings will be sent to the PCP who is then responsible for further management. - All questions answered.? Coding Level of Care Code Lung Cancer Screening G0296 Diagnoses Nicotine dependence, cigarettes, uncomplicated F17.210
--- OUTSIDE RECORDS SUMMARY | 2025-08-18 13:26 | XMS_ITS | Clinical Summary ---
Author Organization [facility] Address [address] [facility] [address] [place] [address] Phone Care Team Providers Care Calculation Clerk Name Role Phone Candelario Schmitz MD Primary [...] 03/21/2014 OSTEOPOROSIS SCREENING INITI AL (ONE-TIME) 2022 INFLUENZA VACCINE (#1) 2025 COVID-19 VACCINE (2 - 2024-2 6 season) 2025 11/27/2020 RSV VACCINE (1 - 1-dose 75+ series) [...] topic Medical Devices Not on file [facility]ICE [facility] [address] [place] [address] [facility] TOTAL CHOICE [address]DE[address] [place] [address] [facility] TOTAL CHOICE [address] [place] [address] [facility] TOTAL CHOICE [address] [place] [address] [facility] TOTAL CHOICE INDEMNITY [employer] [facility] TOTAL CHOICE INDEMNITY [employer] [facility] TOTAL CHOICE INDEMNITY [place] TOTAL CHOICE INDEMNITY [place] TOTAL CHOICE INDEMNITY [place] TOTAL CHOICE INDEMNITY Care Teams Calculation Clerk Relationship Specialty Start Date End Date Candelario Schmitz MD [address] [place] [address] [place] [address] PCP - General Emergency Medicine 02/20/14 Additional Source Comments The information contained in this document represents components of the legal health record. It is not the complete legal health record.[facility]
--- OUTSIDE RECORDS SUMMARY | 2025-08-18 13:27 | XMS_ITS | Patient Health Record ---
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 Name Role Phone Nadir (RETIRED) Candelario SORIANO Primary Care Provider Unavailable Román Pascual Unavailable [phone] Allergies No Known Allergies Reason For Referral No Information Medications Medication SIG (Take, Route, Frequency, Duration) Notes Start Date End Date Status Dilt-XR 120 MG Capsule Extended Release 24 Hour TAKE ONE CAPSULE BY MOUTH DAILY Oral; Duration: 30 Active Enalapril Maleate 20 MG Tablet TAKE 1 TABLET BY MOUTH EVERY DAY Oral; Duration: 30 Active Magnesium Active Atorvastatin Calcium 40 MG Tablet TAKE 1 TABLET BY MOUTH EVERY NIGHT AT BEDTIME DIRECTED Oral; Duration: 30 Active Allergy Relief Activ e Immunizations Vaccine Route Administration Date Status Comme nts Influenza Unknown 02/19/2021 Refused Social History Tobacco Use: Social History Observation Description Date Details (start date - stop date) Current Smoker NA - NA Social History Drugs/Alcohol: Social Info Question Answer Notes Alcohol Screen Did you have a drink containing alcohol in the past year? Yes How often did you have a drink containing alcohol in the past year? 2 to 4 times a month (2 points) How many drinks did you have on a typical day when you were drinking in the past year? 3 or 4 drinks (1 point) Points 3 Interpretation Positive Tobacco Use: Social Info Question Answer Notes Tobacco Use/Smoking Patient is a current smoker How often do you smoke cigarettes? every day How many cigarettes a day do you smoke? 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 alco hol Smokes 12 cigs QD, occ. alco hol Problems Problem Type SNOMED Code ICD Code Onset Dates Problem Status W/U Status Risk Notes Problem Screening for malignant neoplasm of colon (557920983) Encounter for screening for malignant neoplasm of colon (Z12.11) Active confirmed Problem Preprocedural examination (335141279796112) Preprocedural examination (Z01.818) Active confirmed Problem Diverticular disease of colon (183003295) Diverticular disease of colon (K57.30) Active confirmed Vital Signs Blood pressure diastolic 77 mm Hg 01/24/2025 Height 63 in 01/24/2025 Blood pressure systolic 111 mm Hg 01/24/2025 Weight 168 lbs 01/24/2025 BMI 29.76 kg/m2 01/24/2025 Encounters Encounter Location Date Provider Diagnosis [facility] [address] [place] [address] 01/24/2025 Román Pascual Diverticular disease of colon K57.30 ; Colon cancer screening Z12.11 and Encounter for screening for malignant neoplasm of colon Z12.11 [facility] [address] [place] [address] 09/15/2024 Román Pascual Assessments Encounter Date Diagnosis [...] Date MEDICARE OF [place] [address] [place] [address] [id number] MITZI POWELL Self - patient is the insured 2 [employer] ([employer]) [address] [place] [address] [phone] [id number] MITZI POWELL Self - patient is the insured Medical (General) History Medical History History ICD Code Hypertension Right breast cancer-2008--surgery as bel ow, chemo, and XRT Denies DC,DM,CVA,Lung disease,renal dise ase Seasonal allergies Left-sided diverticulitis in 04/2019 and 09/2019 Hyperlipidemia Negative colonoscopy in 2020 Surgical History Surgery Date(Month/Year) Lumpectomy as above 07/2009 Right hip replacement 03/2014 Benign left breast biopsy Left hip replacement 2021
== END 2025-08-21 08:45 | disposition home or self-care (01) ==
LOC: HO.HPS 10:57
PROVIDERS: PCP Student in an Organized Health Care Education/Training Program; Referring Provider Student in an Organized Health Care Education/Training Program; Visit Provider Physician Assistant Medical
DX: F17.210 Nicotine dependence, cigarettes, uncomplicated (principal)
CPT/HCPCS: G0296

== ENCOUNTER 2025-08-18 11:06 | Outpatient (REF) | payer MEDICARE, OTHER, SELFPAY ==
--- NOTE | ~2025-08-18 | CT_ITS ---
EXAMINATION: CT LUNG SCREENING HISTORY: F17.210 - Nicotine dependence, cigarettes, uncomplicated TECHNIQUE: Low dose axial images were obtained from the sternal notch to upper abdomen without IV contrast per standard departmental protocol. Sagittal and coronal reformatted images were also obtained and reviewed. One or more of the following techniques was used for dose reduction: Automated exposure control, adjustment of the mA and/or kV according to patient size, use of iterative reconstruction technique. DLP: 44 mGy-cm COMPARISON: There are no prior studies available for comparison. FINDINGS: Lung nodules: There is a 4 mm nodule in the right middle lobe (series 5, image 71). An additional 3 mm nodule is seen in the right middle lobe (series 5, image 75). Scattered 1-2 mm pulmonary nodules are also noted in both lungs. Emphysema: mild Coronary Calcification: mild Aortic Arch Calcification: mild Potentially Significant Incidentals : none Additional Chest Findings: There is no pleural or pericardial effusion. No mediastinal or axillary lymphadenopathy is identified. Visualized upper abdomen: The visualized portions of the liver, spleen, and adrenals have an unremarkable unenhanced appearance. There is a small hiatal hernia. CT/CT lung screening IMPRESSION: No suspicious pulmonary nodules are identified. LUNG-RADS ASSESSMENT: Lung-RADS 2: Benign MANAGEMENT: Continue annual screening with LDCT in 12 months Category S: N/A Electronically signed by: Román Kohler MD 08/18/2025 01:57 PM [facility]
== END 2025-08-18 11:07 | disposition home or self-care (01) ==
LOC: HO.CT 11:06
PROVIDERS: PCP Student in an Organized Health Care Education/Training Program; Visit Provider Physician Assistant Medical
DX: F17.210 Nicotine dependence, cigarettes, uncomplicated (principal)
CPT/HCPCS: 71271; G0296

== ENCOUNTER → 2025-08-18 11:09 | Outpatient (BNV) | payer MEDICARE, OTHER, SELFPAY | PROVIDERS: PCP Student in an Organized Health Care Education/Training Program; Visit Provider Radiology Diagnostic Radiology | DX: F17.210 Nicotine dependence, cigarettes, uncomplicated (principal) | CPT/HCPCS: 71271 ==